=== PATIENT | male | born 1985 | race Caucasian/White ===

== ENCOUNTER 2017-08-19 10:52 | Emergency (ER) | payer OTHER ==
[2017-08-19 10:57] VITALS: BP 120/61; PULSE 73; TEMP 98.6; BMI 28.1
--- NOTE | 2017-08-19 11:12 | PDOC ---
History of Present Illness - General Chief Complaint: Toothache Stated Complaint: GUM SWOLLEN Time Seen by Provider: 08/19/17 11:09 History Source: Patient Exam Limitations: No Limitations - History of Present Illness Initial Comments: 08/19/17 11:12 32 yr male with c/o toothache since yesterday Past History - Past Medical History Allergies/Adverse Reactions: Allergies Allergy/AdvReac Type Severity Reaction Status Date / Time No Known Allergies Allergy Verified 08/19/17 10:57 Home Medications: Ambulatory Orders Quetiapine Fumarate "Xr" [Seroquel XR] 300 mg PO HS@199907/14/14 Rizatriptan Benzoate [Maxalt] 5 mg PO BID PRN 07/14/14 Quetiapine Fumarate "Xr" [Seroquel XR] 300 mg PO HS@1999 #30 tablet 07/15/14 Amoxicillin/Potassium Clav [Augmentin 875-125 Tablet] 1 each PO BID #20 tablet 08/19/17 Ibuprofen 800 mg PO TID #20 tablet 08/19/17 Anemia: No Asthma: No Cancer: No Cardiac Disorders: No CVA: No COPD: No CHF: No Dementia: No Diabetes: No GI Disorders: No Disorders: No HTN: No Hypercholesterolemia: No Kidney Stones: No Liver Disease: No Seizures: No Thyroid Disease: No - Surgical History Abdominal Surgery: No Appendectomy: No Cardiac Surgery: No Cholecystectomy: No Lung Surgery: No Neurologic Surgery: No Orthopedic Surgery: No - Reproductive History Testicular Surgery: No - Suicide/Smoking/Psychosocial Hx Smoking History: Current every day smoker Have you smoked in the past 12 months: Yes Number of Cigarettes Smoked Daily: 20 Cigars Per Day: 0 Information on smoking cessation initiated: No 'Breaking Loose' booklet given: 07/14/14 Hx Alcohol Use: Yes (DENIES) Drug/Substance Use Hx: Yes (HEROIN/STREET SUBOXONE/KLONOPIN/XANAX/COCAINE) Substance Use Type: Cocaine, Heroin, Marijuana, Tranquilizers Hx Substance Use Treatment: Yes ([facility]) *Physical Exam - Vital Signs Last Vital Signs Temp Pulse Resp BP Pulse Ox 98.6 F 73 18 120/61 99 08/19/17 10:54 08/19/17 10:54 08/19/17 10:54 08/19/17 10:54 08/19/17 10:54 - Physical Exam General Appearance: Yes: Nourished, Appropriately Dressed HEENT: positive: EOMI, VIC, Other (left side facial swelling with tender gums, poor dentition multiple fractured, missing teeth ) Neck: positive: Supple Respiratory/Chest: positive: Lungs Clear, Normal Breath Sounds Cardiovascular: positive: Regular Rhythm, Regular Rate Extremity: positive: Normal Inspection, Normal Range of Motion Integumentary: positive: Normal Color, Dry, Warm Neurologic: positive: Fully Oriented, Alert, Normal Mood/Affect, Normal Response , Motor Strength /5 Medical Decision Making - Medical Decision Making 08/19/17 11:17 cc: dental pain, swelling , afebrile will give augmentin , ibuprofen now for pain *DC/Admit/Observation/Transfer Diagnosis at time of Disposition: Pain, dental - Discharge Dispostion Disposition: HOME Condition at time of disposition: Good - Prescriptions Prescriptions: Amoxicillin/Potassium Clav [Augmentin 875-125 Tablet] 1 each PO BID #20 tablet Ibuprofen 800 mg PO TID #20 tablet - Referrals Referrals: Andria Kumari [Primary Care Provider] - - Patient Instructions Printed Discharge Instructions: DI for Dental Pain, DI for Tooth Abscess Additional Instructions: follow with your dentist tomorrow take the anitbiotic as directed also take motrin for pain as needed gargle with warm salt water 4-5 times a day - Post Discharge Activity
[2017-08-19] MEDS ORDERED: IBUPROFEN 400 MG TABLET (FP) PO ONE ×2 (11:15→11:17)
[2017-08-19] MEDS ORDERED: AMOX TR/POT CLAV 875MG/125MG TABLETS (FP) PO ONE (11:15)
[2017-08-19] MEDS ORDERED: AMOX TR/POT CLAV 875MG/125MG TABLETS (FP) ONE (11:17)
== END 2017-08-19 11:24 | disposition home or self-care (01) ==
LOC: JERFT 10:52
DX: K04.7 Periapical abscess without sinus (principal)
CPT/HCPCS: 99281-25

== ENCOUNTER 2018-02-03 11:58 | Emergency (ER) | payer OTHER ==
[2018-02-03 12:15] VITALS: BP 129/81; PULSE 78; TEMP 98.5; BMI 28.1
[2018-02-03] MEDS ORDERED: DIPHTH,PERTUSS(ACELL),TET 0.5 ML DISP.SYRIN IM ONE (12:28)
--- NOTE | 2018-02-03 12:51 | PDOC ---
History of Present Illness - General Chief Complaint: Pain Stated Complaint: INJURY, LT FT Time Seen by Provider: 02/03/18 12:26 History Source: Patient Exam Limitations: No Limitations - History of Present Illness Initial Comments: CHIEF COMPLAINT: 32 y/o male c/o right foot pain after he stepped on dirty nail yesterday. HISTORY OF PRESENT ILLNESS: The patient is not UTD on tetanus. He has been soaking his foot. Patient is not a diabetic and is currently taking Augmentin for a mouth infection. Vital signs on arrival are within normal limits. REVIEW OF SYSTEMS: GENERAL/CONSTITUTIONAL: No fever/chills MUSCULOSKELETAL: No joint or muscle swelling or pain. No neck or back pain. SKIN: +nail wound to bottom of right foot. NEUROLOGIC: No headache, vertigo, loss of consciousness, or loss of sensation. PHYSICAL EXAM: VITAL_SIGNS: within normal limits GENERAL_APPEARANCE: alert, cooperative, no obvious discomfort. MENTAL_STATUS: speech clear, oriented X 3, responds appropriately to questions. NEURO: motor intact and sensory intact in injured extremity. EXTREMITIES: good pulse in injured extremity. Very small puncture wound to plantar aspect of right foot between base of 2nd and 3rd toe. No TTP, swelling , surrounding erythema or sensation of foreign body. Full flexion and extension of all toes of right foot. SKIN: warm, dry, good color. Past History - Past Medical History Allergies/Adverse Reactions: Allergies Allergy/AdvReac Type Severity Reaction Status Date / Time No Known Allergies Allergy Verified 02/03/18 12:15 Home Medications: Ambulatory Orders Quetiapine Fumarate "Xr" [Seroquel XR] 300 mg PO HS@199907/14/14 Rizatriptan Benzoate [Maxalt] 5 mg PO BID PRN 07/14/14 Quetiapine Fumarate "Xr" [Seroquel XR] 300 mg PO HS@1999 #30 tablet 07/15/14 Amoxicillin/Potassium Clav [Augmentin 875-125 Tablet] 1 each PO BID #20 tablet 08/19/17 Ibuprofen 800 mg PO TID #20 tablet 08/19/17 Anemia: No Asthma: No Cancer: No Cardiac Disorders: No CVA: No COPD: No CHF: No Dementia: No Diabetes: No GI Disorders: No Disorders: No HTN: No Hypercholesterolemia: No Kidney Stones: No Liver Disease: No Seizures: No Thyroid Disease: No - Surgical History Abdominal Surgery: No Appendectomy: No Cardiac Surgery: No Cholecystectomy: No Lung Surgery: No Neurologic Surgery: No Orthopedic Surgery: No - Reproductive History Testicular Surgery: No - Immunization History Immunization Up to Date: No - Suicide/Smoking/Psychosocial Hx Smoking History: Current every day smoker Have you smoked in the past 12 months: Yes Number of Cigarettes Smoked Daily: 20 Cigars Per Day: 0 Information on smoking cessation initiated: No 'Breaking Loose' booklet given: 07/14/14 Hx Alcohol Use: Yes (DENIES) Drug/Substance Use Hx: Yes (HEROIN/STREET SUBOXONE/KLONOPIN/XANAX/COCAINE) Substance Use Type: Cocaine, Heroin, Marijuana, Tranquilizers Hx Substance Use Treatment: Yes ([facility]) *Physical Exam - Vital Signs Last Vital Signs Temp Pulse Resp BP Pulse Ox 98.5 F 78 18 129/81 99 02/03/18 12:11 02/03/18 12:11 02/03/18 12:11 02/03/18 12:11 02/03/18 12:11 Medical Decision Making - Medical Decision Making A/P: 32 y/o male with puncture wound from nail to bottom of right foot. Will give tetanus and discharge to home. Instructed the patient to soak foot and keep wound clean. The patient verbalizes understanding of all instructions, has no further questions and is awaiting discharge. *DC/Admit/Observation/Transfer Diagnosis at time of Disposition: Nail entering through skin, initial encounter - Discharge Dispostion Disposition: HOME Condition at time of disposition: Good - Referrals Referrals: Humaira Desai MD [Primary Care Provider] - - Patient Instructions Printed Discharge Instructions: DI for Puncture Wound Additional Instructions: Discharge Instructions: -You were give a tetanus shot today; you are not up to date for 10 years -Soak your foot in warm water multiple times per day -Keep area clean - Post Discharge Activity Forms/Work/School Notes: Back to Work
== END 2018-02-03 13:05 | disposition home or self-care (01) ==
LOC: JERFT 11:58
PROC: 3E0234Z Introduction of Serum, Toxoid and Vaccine into Muscle, Percutaneous Approach (ICD-10-PCS; principal; 2018-02-03)
DX: S91.331A Puncture wound without foreign body, right foot, initial encounter (principal); W45.0XXA Nail entering through skin, initial encounter; Y93.89 Activity, other specified; Y92.89 Other specified places as the place of occurrence of the external cause; Y99.8 Other external cause status
CPT/HCPCS: 90471; 90715; 99281-25

== ENCOUNTER 2018-03-24 10:11 | Emergency (ER) | payer OTHER ==
[2018-03-24 10:31] VITALS: BP 100/61; PULSE 58; TEMP 98.4; BMI 28.1
--- NOTE | 2018-03-24 10:39 | PDOC ---
History of Present Illness - General Chief Complaint: Toothache Stated Complaint: TOOTH PAIN Time Seen by Provider: 03/24/18 10:38 History Source: Patient Exam Limitations: No Limitations - History of Present Illness Initial Comments: 03/24/18 11:00 Pt is a 32 y/o M who presents to the ED with toothache for three days. Pt states he has chronic dental pain and has a dentist which is seeing on 04/03/17 to have more upper teeth pulled. Past History - Travel Traveled outside of the country in the last 30 days: No Close contact w/someone who was outside of country & ill: No - Past Medical History Allergies/Adverse Reactions: Allergies Allergy/AdvReac Type Severity Reaction Status Date / Time No Known Allergies Allergy Verified 03/24/18 10:31 Home Medications: Ambulatory Orders Quetiapine Fumarate "Xr" [Seroquel XR] 300 mg PO HS@199907/14/14 Rizatriptan Benzoate [Maxalt] 5 mg PO BID PRN 07/14/14 Quetiapine Fumarate "Xr" [Seroquel XR] 300 mg PO HS@1999 #30 tablet 07/15/14 Amoxicillin/Potassium Clav [Augmentin 875-125 Tablet] 1 each PO BID #20 tablet 08/19/17 Ibuprofen 800 mg PO TID #20 tablet 08/19/17 Amox-Tr/K Cl [Augmentin - 875Mg Tablet] 1 tab PO BID #20 tablet 03/24/18 Ibuprofen 800 mg PO TID #30 tablet 03/24/18 Anemia: No Asthma: No Cancer: No Cardiac Disorders: No CVA: No COPD: No CHF: No Dementia: No Diabetes: No GI Disorders: No Disorders: No HTN: No Hypercholesterolemia: No Kidney Stones: No Liver Disease: No Seizures: No Thyroid Disease: No - Surgical History Abdominal Surgery: No Appendectomy: No Cardiac Surgery: No Cholecystectomy: No Lung Surgery: No Neurologic Surgery: No Orthopedic Surgery: No - Reproductive History Testicular Surgery: No - Immunization History Immunization Up to Date: No - Suicide/Smoking/Psychosocial Hx Smoking History: Current every day smoker Have you smoked in the past 12 months: Yes Number of Cigarettes Smoked Daily: 20 Cigars Per Day: 0 Information on smoking cessation initiated: No 'Breaking Loose' booklet given: 07/14/14 Hx Alcohol Use: Yes (DENIES) Drug/Substance Use Hx: Yes (HEROIN/STREET SUBOXONE/KLONOPIN/XANAX/COCAINE) Substance Use Type: Cocaine, Heroin, Marijuana, Tranquilizers Hx Substance Use Treatment: Yes ([facility]) Review of Systems - Review of Systems Able to Perform ROS?: Yes Comments:: 03/24/18 10:38 CONSTITUTIONAL: Absent: fever, chills, diaphoresis, generalized weakness, malaise, loss of appetite HEENT: Present: tooth pain Absent: rhinorrhea, nasal congestion, throat pain, throat swelling, difficulty swallowing, mouth swelling, ear pain, eye pain, visual Changes CARDIOVASCULAR: Absent: chest pain, loss of consciousness, palpitations, irregular heart rate, peripheral edema RESPIRATORY: Absent: cough, shortness of breath, dyspnea with exertion, orthopnea, wheezing, stridor, hemoptysis GASTROINTESTINAL: Absent: abdominal pain, abdominal distension, nausea, vomiting, diarrhea, constipation, melena, hematochezia GENITOURINARY: Absent: dysuria, frequency, urgency, hesitancy, hematuria, flank pain, genital pain MUSCULOSKELETAL: Absent: myalgia, arthralgia, joint swelling SKIN: Absent: rash, itching, pallor HEMATOLOGIC/IMMUNOLOGIC: Absent: easy bleeding, easy bruising, lymphadenopathy, frequent infections ENDOCRINE: Absent: unexplained weight gain, unexplained weight loss, heat intolerance, cold intolerance NEUROLOGIC: Absent: headache, focal weakness or paresthesias, dizziness, unsteady gait, seizure, mental status changes, bladder or bowel incontinence PSYCHIATRIC: Absent: anxiety, depression, suicidal or homicidal ideation, hallucinations. Is the patient limited Greek proficient: No *Physical Exam - Vital Signs Last Vital Signs Temp Pulse Resp BP Pulse Ox 98.4 F 58 L 18 100/61 99 03/24/18 10:28 03/24/18 10:28 03/24/18 10:28 03/24/18 10:28 03/24/18 10:28 - Physical Exam Comments: 03/24/18 10:38 GENERAL: The patient is awake, alert, and fully oriented, in no acute distress. HEAD: Normal with no signs of trauma. MOUTH: Severe dental decay to the upper molars, teeth 25,26. Other upper teeth from 27-31 have been pulled. Overall poor dentition. No obvious abscess at this time. EYES: Pupils equal, round and reactive to light, extraocular movements intact, sclera anicteric, conjunctiva clear. EXTREMITIES: Normal range of motion, no edema. NEUROLOGICAL: Normal speech, normal gait. PSYCH: Normal mood, normal affect. SKIN: Warm, Dry, normal turgor, no rashes or lesions noted. Moderate Sedation - Procedure Monitoring Vital Signs: Procedure Monitoring Vital Signs Temperature 98.4 F 03/24/18 10:28 Pulse Rate 58 L 03/24/18 10:28 Respiratory Rate 18 03/24/18 10:28 Blood Pressure 100/61 03/24/18 10:28 O2 Sat by Pulse Oximetry (%) 99 03/24/18 10:28 Medical Decision Making - Medical Decision Making 03/24/18 10:39 ELIGIBILITY ANALYST: Reference #: [id number] Pt receives suboxone from his PCP every month. Pt is compliant with his medication Pt is a 32 y/o M who presents to the ED for dental pain. -On exam extremely poor dentition to the upper molars. -No abscess appreciated -Motrin given -Will give augmentin and motrin -Pt to follow up with his dentist on the -[place] home -I discussed the physical exam findings, ancillary test results and final diagnoses with the patient. I answered all of the patient's questions. The patient was satisfied with the care received and felt comfortable with the discharge plan and treatment plan. The Patient agrees to follow up with the primary care physician/specialist within 24-72 hours. Return precautions were given. *DC/Admit/Observation/Transfer Diagnosis at time of Disposition: Toothache - Discharge Dispostion Disposition: HOME Condition at time of disposition: Stable Decision to Admit order: No - Prescriptions Prescriptions: Amox-Tr/K Cl [Augmentin - 875Mg Tablet] 1 tab PO BID #20 tablet Ibuprofen 800 mg PO TID #30 tablet - Referrals Referrals: Humaira Desai MD [Primary Care Provider] - - Patient Instructions Printed Discharge Instructions: DI for Tooth Abscess, DI for Dental Pain Additional Instructions: You were evaluated for your dental pain today Please stop taking the ampicillin Take the Augmentin twice a day for 10 days. Take with food You may take 800mg of ibuprofen every 8 hours as needed for pain. Do not take more than 3,000mg a day Keep your follow up with your dentist on 04/03/18 as previously arranged Return to the ED if you have worsening pain, increased swelling, redness to the cheek, fever, or if you have any changes in your symptoms. - Post Discharge Activity Forms/Work/School Notes: Back to Work
[2018-03-24] MEDS ORDERED: IBUPROFEN 400 MG TABLET (FP) PO ONE ×2 (10:55→10:59)
[2018-03-24] MEDS ORDERED: AMOX TR/POT CLAV 875MG/125MG TABLETS (FP) PO ONE (10:55)
[2018-03-24] MEDS ORDERED: AMOX TR/POT CLAV 875MG/125MG TABLETS (FP) ONE (10:59)
== END 2018-03-24 11:02 | disposition home or self-care (01) ==
LOC: JERFT 10:11 → JER 10:11 → JERFT 11:02
DX: K08.89 Other specified disorders of teeth and supporting structures (principal); F19.11 Other psychoactive substance abuse, in remission
CPT/HCPCS: 99281-25

== ENCOUNTER 2020-06-06 15:50 | Emergency (ER) | payer OTHER ==
[2020-06-06 16:05] VITALS: BP 144/60; PULSE 69; TEMP 98.5; BMI 24.9
== END 2020-06-06 16:40 | disposition home or self-care (01) ==
LOC: JERFT 15:50 → JER 15:50 → JERFT 16:40
DX: S62.656A Nondisplaced fracture of middle phalanx of right little finger, initial encounter for closed fracture (principal)
CPT/HCPCS: 73140-TC-RT-FY; 99281-25

== ENCOUNTER 2022-07-11 08:23 | Emergency (ER) | payer OTHER ==
[2022-07-11 08:36] VITALS: BP 108/70; PULSE 72; RESP 18; TEMP 98; BMI 25.0
[2022-07-11] MEDS ORDERED: LIDOCAINE HCL 2% (20ML MULTI-DOSE VIAL) ONE (09:55)
== END 2022-07-11 10:35 | disposition home or self-care (01) ==
LOC: JER 08:23
PROC: 0C90XZZ Drainage of Upper Lip, External Approach (ICD-10-PCS; principal; 2022-07-11)
PROC: 3E023GC Introduction of Other Therapeutic Substance into Muscle, Percutaneous Approach (ICD-10-PCS; 2022-07-11)
DX: K13.0 Diseases of lips (principal)
CPT/HCPCS: 10060; 96372; 99284-25